=== PATIENT | male | born 1995 | race Caucasian/White ===

== ENCOUNTER 2017-05-24 17:45 | Emergency (ER) | payer OTHER ==
[~2017-05-24] VITALS: Ht 182.9 cm; Wt 81.8 kg
[2017-05-24] MEDS ORDERED: MOBI4TAB PO (18:00)
--- NOTE | 2017-05-24 19:50 | REPUSA ---
HISTORY: LT TESTICULAR PAIN. TECHNIQUE: Scrotal ultrasound examination with color flow Doppler imaging. FINDINGS: Right testis measures 4.2 x 2.4 x 2.8 cm with normal Doppler blood flow and with no patho logic mass seen. Right epididymis is normal. Left testis measures 4.4 x 2.0 x 3.1 cm with normal Doppler vascularity, with no pathologic mass seen . Left epididymis is normal. There are small bilateral hydroceles, greater on the right side. No other pathologic scrotal masses seen. IMPRESSION: 1. No evidence of testicular mass lesion or torsion. 2. Small bilateral hydroceles with no other pathologic scrotal mass lesions seen.
[2017-05-24 20:20] VITALS: BP 123/58
== END 2017-05-24 20:21 | disposition home or self-care (01) ==
LOC: M ED 17:45
DX: N43.3 Hydrocele, unspecified (principal)

== ENCOUNTER → 2017-08-01 | Outpatient (REF) | payer OTHER ==
[~2017-08-01] MED LIST: MOBI4TAB PO
== END ==
LOC: M SMT 14:08
PROVIDERS: ATTEND Nurse Practitioner Family
DX: N50.819 Testicular pain, unspecified (principal)
CPT/HCPCS: 81001; 87086; 87491; 87591; G0463

== ENCOUNTER → 2017-08-04 | Outpatient (CLI) | payer OTHER ==
--- NOTE | 2017-08-04 09:08 | REP ---
Clinical: Left lower quadrant pain radiating to scrotum/testicles. Findings: Lung bases are clear. Visualized heart and pericardium normal. Liver, spleen, pancreas, gallbladder, bilateral adrenal glands are normal. Absent right kidney with enlarged left kidney noted. The enteric system is without obstruction or acute inflammatory process normal appendix identified in the right lower quadrant. Pelvis demonstrates normal bladder and age appropriate prostate/seminal vesicles. No ascites. No adenopathy. No solitary mass lesion. Abdominal aorta without aneurysm. Surrounding musculoskeletal structures are intact. Impression: 1. 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 2. Otherwise normal noncontrast CT of the abdomen and pelvis. Signed by Matthew Jacobson MD 08/04/2017 08:59 A
== END ==
LOC: M RAD 07:12
PROVIDERS: ATTEND Nurse Practitioner Family
DX: Q60.0 Renal agenesis, unilateral (principal)

== ENCOUNTER → 2018-04-06 | Outpatient (CLI) | payer OTHER ==
[2018-04-06 12:59] LABS: ANION GAP 7 MEQ/L (8-16); BLOOD UREA NITROGEN 12 MG/DL (7-18); CARBON DIOXIDE LEVEL 30 MEQ/L (21-32); CHLORIDE LEVEL 106 MEQ/L (98-107); CREATININE FOR GFR 1.15 MG/DL (0.70-1.30); GLUCOSE, FASTING 88 MG/DL (70-100); SODIUM LEVEL 143 MEQ/L (136-145)
[2018-04-06 13:18] LABS: AMORPHOUS SEDIMENT MODERATE (NEGATIVE); APPEARANCE, URINE TURBID (CLEAR); BACTERIA, URINE AUTO 1+ (NEGATIVE); BILIRUBIN, URINE AUTO NEGATIVE (NEGATIVE); BLOOD, URINE BLOOD NEGATIVE (NEGATIVE); COLOR, URINE YELLOW (YELLOW); GLUCOSE, URINE (UA) AUTO NEGATIVE (NEGATIVE); KETONE, URINE AUTO NEGATIVE (NEGATIVE); LEUKOCYTE ESTERASE, URINE AUTO NEGATIVE (NEGATIVE); NITRITE, URINE AUTO NEGATIVE (NEGATIVE); PROTEIN, URINE AUTO NEGATIVE (NEGATIVE); RBC, URINE AUTO 0 /HPF (0-3); SPECIFIC GRAVITY URINE AUTO 1.023 (1.002-1.035); SQUAMOUS EPITHELIAL CELL UR AU 0 /HPF (0-6); UROBILINOGEN, URINE AUTO 0.2 mg/dL (0.0-2.0); WBC, URINE AUTO 1 /HPF (0-3)
[2018-04-06 15:57] LABS: CHLAMYDIA DNA AMPLIFICATION NEGATIVE (NEGATIVE); GC DNA AMPLIFICATION NEGATIVE (NEGATIVE)
== END ==
LOC: M SMT 08:39
DX: N50.819 Testicular pain, unspecified (principal)
CPT/HCPCS: 80048

== ENCOUNTER → 2018-05-02 | Outpatient (CLI) | payer OTHER | LOC: M RAD 16:25 | DX: N50.819 Testicular pain, unspecified (principal) | CPT/HCPCS: 76870 ==

== ENCOUNTER 2019-09-23 07:44 | Emergency (ER) | payer OTHER ==
[~2019-09-23] VITALS: Ht 182.9 cm; Wt 86.3 kg
[2019-09-23] MEDS ORDERED: motrin (07:51)
[2019-09-23] MEDS ORDERED: NS 1,000 ML IV ONE (08:15)
[2019-09-23] MEDS ORDERED: AMPICILLIN SOD/SULBACTAM SOD 3 GM in D5W MINI-BAG PLUS 100 ML IV ONE (08:15)
[2019-09-23] MEDS ORDERED: KETOROLAC 30 MG/ML VIAL (J1885) IV ONE (08:15)
[2019-09-23 08:44] LABS: BASO # 0.1 10^3/uL (0.0-0.2); BASO % 0.3 % (0.0-1.0); EOS % 0.1 % (0.0-3.0); HEMATOCRIT 47.7 % (42.0-52.0); HEMOGLOBIN 15.5 g/dl (13.5-17.5); LYMPH # 1.7 10^3/uL (1.5-5.0); LYMPH % 11.5 % (24.0-44.0); MEAN CORPUSCULAR HEMOGLOBIN 28.1 pg (27.0-33.0); MEAN CORPUSCULAR HGB CONC 32.5 g/dl (32.0-36.5); MEAN CORPUSCULAR VOLUME 86.4 fl (80.0-96.0); MONO # 1.8 10^3/uL (0.0-0.8); MONO % 11.9 % (0.0-5.0); NEUTROPHILS # 11.1 10^3/uL (1.5-8.5); NEUTROPHILS % 75.7 % (36.0-66.0); PLATELET COUNT, AUTOMATED 217 10^3/uL (150-450); RED BLOOD COUNT 5.52 10^6/uL (4.30-6.10); WHITE BLOOD COUNT 14.7 10^3/uL (4.0-10.0)
[2019-09-23 09:04] LABS: BLOOD UREA NITROGEN 8 MG/DL (7-18); C REACTIVE PROTEIN QUANTITATIV 7.39 MG/DL (0.00-0.30); CALCIUM LEVEL 9.3 MG/DL (8.5-10.1); CARBON DIOXIDE LEVEL 23 MEQ/L (21-32); CHLORIDE LEVEL 101 MEQ/L (98-107); GLOMERULAR FILTRATION RATE > 60.0 (>60); GLUCOSE, FASTING 107 MG/DL (70-100); POTASSIUM SERUM 3.7 MEQ/L (3.5-5.1); SODIUM LEVEL 134 MEQ/L (136-145)
[2019-09-23 09:16] LABS: ERYTHROCYTE SEDIMENTATION RATE 25 mm/hr (0-15)
[2019-09-23] MEDS ORDERED: ISOVUE-370 76% 100ML VIAL (Q9967) As Ordered ONE (09:18)
--- NOTE | 2019-09-23 10:20 | REP ---
Maxillofacial CT study with IV contrast: History: Upper jaw pain. Swelling. Possible abscess. CT contrast dose: 75 mL of intravenous Isovue 370. CT findings: Preliminary digital registered dietetic technician radiograph demonstrates moderate soft tissue swelling in front of the maxilla just below the nose extending in the upper lip. To BBs are affixed to the skin at the site of this swelling, one on the right and the other on the left to denote the area of interest. At the level of the swelling, there is a small periapical radiolucency adjacent to the root of the left medial maxillary incisor. Anterior to this, there is a irregular fluid collection in front of the maxilla consistent with an abscess. This measures 1.4 cm anterior-posterior by 3.5 cm right to left by 2.1 cm cranial to caudal. It extends a little more to the left than to the right but does span the midline. Maxillary sinuses are clear. Sphenoid, ethmoid, and frontal sinuses are unremarkable. Bony orbital and paranasal sinus margins are intact. There are scattered normal-sized cervical lymph nodes visible. No parotid or submandibular gland lesion is seen. No intracranial abnormality is observed. Impression: Soft tissue abscess noted spanning the midline in the premaxillary soft tissues, a little more prominently to the left than to the right. This measures 1.4 x 3.5 x 2.1 cm. This may be associated with a small radiolucency at the tooth root apex of the left medial maxillary incisor. Electronically Signed by Hai Vargas MD 09/23/2019 11:06 A
[2019-09-23] MEDS ORDERED: dexameTHASONE 20 MG/5 ML VIAL (J1100) IV ONE (10:45)
[2019-09-23 10:47] VITALS: BP 123/62
[2019-09-23] MEDS ORDERED: AUGM875T28 PO (11:04)
--- NOTE | 2019-09-24 12:54 | ED PDOC ---
Post-Departure Follow-Up ft claudia ferris faxed formal report of ct max fac for fu Ruy Ingram MD Sep 24, 2019 12:53
== END 2019-09-23 11:17 | disposition home or self-care (01) ==
LOC: M ED 07:44
DX: K04.7 Periapical abscess without sinus (principal); F17.210 Nicotine dependence, cigarettes, uncomplicated
CPT/HCPCS: 36415; 70487; 80048; 85025; 85652; 86140; 87040; 96365; 96375; 99284; J1100; J1885; Q9967